=== PATIENT | male | born 1990 | race African-American/Black ===

== ENCOUNTER 2021-03-02 15:31 | Emergency (ER) | payer SELFPAY ==
--- OUTSIDE RECORDS SUMMARY | 2021-03-02 15:34 | XMS REPORT | Continuity of Care Document ---
:1990 Author Organization [facility] t Address [address] [place] [address] Care Team Providers Name Role Phone Pcp MD Primary Care Physician Unavailable Drew Sen MD Attending Clinician Khang Cavazos MD Attending Clinician Amy ADAMS Attending Clinician Unavailable Problems This patient has no known problems. Allergies, Adverse Reactions, Alerts Allergy Allergy Status Severity Reaction(s) Onset Inactive Treating Comm ents Source Name Type Date Date Clinician [facility] Propensi Active Hives [place] [facility] to 06-04 [facility] adverse 00:00: st reaction 00 s to drug [facility] Drug Active Hives 2012-[address] [facility] Social History Social Habit Start Date Stop Date Quantity Comments Source Tobacco use and 2020-07-13 2020-07-13 Never used [facility] ethodist exposure 00:00:00 00:00:00 Alcohol intake 2020-07-13 2020-07-13 Current drinker [place] 00:00:00 00:00:00 of alcohol (finding) Alcohol Comment 2019-06-04 2019-06-04 social [facility] ethodist 00:00:00 00:00:00 Cigarettes smoked 2019-04-11 2019-04-[address] [facility] - current (pack per 00:00:00 00:00:00 Medical Center day) - Reported Cigarette 2019-04-11 2019-04-[address] [facility] - pack-years 00:00:00 00:00:00 Medical Center Sex Ass[birth year] At [birth year] [facility] ethodist 00:00:00 00:00:00 Smoking Status Start Date Stop Date Source Current every day smoker 2020-07-13 00:00:00 [facility] Heavy tobacco smoker 2019-04-11 00:00:00 [facility] Medications Ordered Filled Start Stop Current Ordering Indication Dosage Frequency Signature Comments Components Source Medication Medication Date Date Medication? Clinician (SIG) Name Name albuterol Yes 2 puffs q Coreen raymundo (PROAIR 02-21 4 hrs for [facility] HFA) 90 00:00: two days, st mcg/actuati 00 then prn on inhaler albuterol 2020- Yes Moderate 1.25mg Q6H Take 3 mL [place] (ACCUNEB) 02-2117 asthma with (1.25 mg [facility] 1.25 mg/3 00:00: 23:59 exacerbatio total) by st mL 00 :00 n, nebulizati nebulizer unspecified on every 6 solution whether (six) persistent hours as needed for wheezing for up to 30 days. predniSONE No 60mg QD Take 3 [place] (DELTASONE) 02-21 06-21 tablets Meth xavier 20 mg 00:00: 23:59 ([address] tablet 00 :00 total) by mouth daily for 4 days. traMADoL 2019-09 No acute pain 50mg Q6H Take 1 [place] (ULTRAM) 50 09-12 tablet (50 M ethodi mg tablet 00:00: 23:59 mg total) st 00 :00 by mouth every 6 (six) hours as needed for moderate pain for up to 10 days .acute pain. clindamycin 2019-09- No 450mg [id number] Take 3 [place] (CLEOCIN) 09-1213 [id number] capsules [facility]i 150 MG 00:00: 23:59 3D ([address] capsule 00 :00 total) by mouth 3 (three) times a day for 7 days. albuterol 2012-09 Yes 1{ampul Take [address] (ACCUNEB) 0-30 e} ampule by [facility] - 1.25 mg/3 09:06: nebulizati Me dical mL 39 on every 6 Center nebulizer (six) solution hours as needed. Immunizations Ordered Immunization Filled Immunization Date Status Commen ts Source Name Name Tdap 2017-08-[address] [facility] Vital Signs Vital Name Observation Time Observation Value Comments Source Systolic blood 2021-02-21 15:12:00 120 mm[Hg] [place] pressure Diastolic blood 2021-02-21 15:12:00 79 mm[Hg] [place] pressure Heart rate 2021-02-21 15:12:00 88 /min [facility] Body temperature 2021-02-21 15:12:00 36.39 [place] Respiratory rate 2021-02-21 15:12:00 19 /min [place] Oxygen saturation in 2021-02-21 15:12:00 99 /min [facility] Arterial blood by Pulse oximetry Body height 2021-02-21 12:25:00 175.3 cm [facility] Body weight 2021-02-21 12:25:00 99.791 kg [facility] BMI 2021-02-21 12:25:00 32.49 kg/m2 [facility] Procedures Procedure Date / Time Performed Performing Clinician Sourc e XR CHEST 2 VW 2021-02-21 14:43:30 Tim Sen Plan of Care Planned Activity Planned Date Details Comments Source Future Scheduled 2021-04-07 INFLUENZA VACCINE [facility] Test 00:00:00 [code = INFLUENZA VACCINE] Future Scheduled 2020-09-[address] [facility] - Test 00:00:00 (12+) [code = [facility] DEPRESSION SCREENING (12+)] Future Scheduled 2020-05-08 INFLUENZA VACCINE (#1) [facility] 00:00:00 [code = INFLUENZA Medical Ce nter VACCINE (#1)] Future Scheduled 2017-09-22 DTAP/TDAP/TD [facility]ACCINES [facility] 00:[facility]00 (2 - Td) [[facility] DTAP/TDAP/TD VACCINES (2 - Td)] Future Scheduled [address] [facility] Test 00:00:00 (procedure) [code = [facility] [id number]] Future Scheduled 2007 HEPATITIS C SCREENING [facility] Test 00[facility]00:00 [code = HEPATITIS C [facility] SCREENING] Future Scheduled 2007 Hepatitis C screening [facility] Test 00:00:00 (procedure) [code = 352056912] Future Scheduled 2001 COVID-19 VACCINE (1) [facility] Test 00:00:00 [code = COVID-19 VACCINE (1)] Future Scheduled [address] [facility] - Test 00:00:00 0-64 YRS (1 of 1 - Medical C enter PPSV23) [code = PNEUMOCOCCAL VACCINE 0-64 YRS (1 of 1 - PPSV23)] Encounters Start End Encounter Admission Attending Care Care Encounter Source Date/Time Date/Time Type Type Clinicians Facility Department ID 2021-02-21 2021-02-21 Emergency [place], [place] [id number] [address] [place] 00:00:00 00:00:00 TIM [address] 2020-07-13 2020-07-13 Emergency [place] [address] [id number] [address] [place] 00:00:00 00:00:[address] [address] Results Test Description Test Time Test Comments Results Result Sourc e Comments XR Chest 2 Vw 2021-02-05 [facility] [address] 14:45:31 02/21/2021 2:48 PM CDT EXAMINATION: XR CHEST 2 VWCLINICAL HISTORY: 30 years Male sobCOMPARISON: None.IMPRESSION:The cardiomediastinal silhouette is not enlarged The lungs are clear The osseous structures are within normal limits... RAPID DRUG SCREEN, URINE 2019-04-11 18:42:00 Test Item Value Reference Range Interpretation Comme nts METHAMPHETAMINE SCREEN (BEAKER) (test code = 1435) Negative Neg ative BARBITURATE URINE (BEAKER) (test code = 725) Negative Negative BENZODIAZEPINE SCREEN URINE (BEAKER) (test code = 726) Negative Negative COCAINE (METAB.) SCREEN (BEAKER) (test code = 1164) Positive Ne gative A METHADONE SCREEN (BEAKER) (test code = 1436) Negative Negative OPIATE SCREEN URINE (BEAKER) (test code = 734) Negative Negativ e CANNABINOID SCREEN URINE (BEAKER) (test code = 727) Positive Ne gative A TRICYCLIC SCREEN (BEAKER) (test code = 1437) Negative Negative AMPHETAMINE SCREEN URINE (BEAKER) (test code = 399) Negative Ne gative PHENCYCLIDINE SCREEN URINE (BEAKER) (test code = 608) Negative Negative DRUG CUTOFF CONC.Methamphetamine 1000 ng/mLCocaine 300 ng/mLCannabinoid 50 ng/mLBenzodiazepine 300 ng/mLTricyclic 1000 ng/tIMdxdpfvgvbt805 ng/mLPhencyclidine 25 ng/mLAmphetamine 1000 ng/mLOpiate 300 ng/mLMethadone 300 ng/mLThis assay provides an unconfirmed qualitative test result for the clinical management of patients in emergency situations. Chain of custody not maintained. Some nyjg-vja-modeeej medications, as well as adulterants, may cause inaccurate results. Clinical correlation should be applied. A more comprehensive drug screen or confirmation of a detected drug may be performed uponrequest.CT, BRAIN, WITHOUT [id number] 18:09:00FINAL REPORT CT, BRAIN, WITHOUT CONTRAST CLINICAL INDICATION: Confusion/delirium, altered LOC, unexplained COMPARISON: None TECHNIQUE: Noncontrast axial CT imaging of the brainand skull. DOSE REDUCTION: Dose modulation, iterative reconstruction, and/or weight-based adjustment of the mA/kV was utilized to reduce the radiation dose to as low as reasonably achievable. FINDINGS:No intracranial hemorrhage, midline shift or mass effect. Midline structures are normally developed. No hydrocephalus. Orbits are within normal limits. No obstructive paranasal sinus disease. IMPRESSION: No acute intracranial findings If there is persistent clinical concern for intracranial pathology, MR examination is recommended for further characterization. Signed: Thu Young MDReport Verified Date/Time: 04/11/2019 18:09:57 Reading Location: [facility] Radiology Reading Room C METABOLIC [id number] 16:12:00 Test Item Value Reference Range Interpretation Comments SODIUM (BEAKER) 129 meq/L 135-148 L (test code = 381) POTASSIUM (BEAKER) 3.8 meq/L 3.6-5.5 (test code = 379) CHLORIDE (BEAKER) 93 meq/L 98-106 L (test code = 382) CO2 (BEAKER) (test 27 meq/L 24-32 code = 355) BLOOD UREA NITROGEN 16 mg/dL 10-26 (BEAKER) (test code = 354) CREATININE (BEAKER) 1.23 mg/dL 0.50-1.20 H (test code = 358) GLUCOSE RANDOM 94 mg/dL 70-110 (BEAKER) (test code = 652) CALCIUM (BEAKER) 8.9 mg/dL 8.5-10.5 (test code = 697) EGFR (BEAKER) (test 84 mL/min/1.73 ESTIMA LOU GFR IS code = 1092) sq m NOT ACCURATE CREATININE CLEARANCE IN PREDICTING GLOMERULAR FILTRATION RATE . ESTIMATED GFR I S NOT APPLICABLE FOR DIALYSIS PATIEN TS. CBC W/PLT COUNT & AUTO [id number] 16:12:00 Test Item Value Reference Range Interpretation Comments WHITE BLOOD CELL COUNT (BEAKER) 13.5 K/ L 4.0-10.0 H (test code = 775) RED BLOOD CELL COUNT (BEAKER) 4.93 M/ L 4.20-5.80 (test code = 761) HEMOGLOBIN (BEAKER) (test code = 14.9 GM/DL 13.0-16.8 410) HEMATOCRIT (BEAKER) (test code = 44.8 % 40.0-50.0 411) MEAN CORPUSCULAR VOLUME (BEAKER) 90.9 fL 82.0-98.0 (test code = 753) MEAN CORPUSCULAR HEMOGLOBIN 30.2 pg 27.0-33.0 (BEAKER) (test code = 751) MEAN CORPUSCULAR HEMOGLOBIN CONC 33.2 GM/DL 32.0-36.0 (BEAKER) (test code = 752) RED CELL DISTRIBUTION WIDTH 12.4 % 10.3-14.2 (BEAKER) (test code = 412) PLATELET COUNT (BEAKER) (test 288 K/CU MM 150-430 code = 756) MEAN PLATELET VOLUME (BEAKER) 7.4 fL 6.5-10.5 (test code = 754) NEUTROPHILS RELATIVE PERCENT 59 % (BEAKER) (test code = 429) LYMPHOCYTES RELATIVE PERCENT 27 % (BEAKER) (test code = 430) MONOCYTES RELATIVE PERCENT 9 % (BEAKER) (test code = 431) EOSINOPHILS RELATIVE PERCENT 4 % (BEAKER) (test code = 432) BASOPHILS RELATIVE PERCENT 1 % (BEAKER) (test code = 437) NEUTROPHILS ABSOLUTE COUNT 8.03 K/ L 1.80-8.00 H (BEAKER) (test code = 670) LYMPHOCYTES ABSOLUTE COUNT 3.68 K/ L 1.48-4.50 (BEAKER) (test code = 414) MONOCYTES ABSOLUTE COUNT (BEAKER) 1.19 K/ L 0.00-1.30 (test code = 415) EOSINOPHILS ABSOLUTE COUNT 0.47 K/ L 0.00-0.50 (BEAKER) (test code = 416) BASOPHILS ABSOLUTE COUNT (BEAKER) 0.15 K/ L 0.00-0.20 (test code = 417) RAD, FOOT, MIN 3 VIEWS, [id number] 11:17:00Reason for exam:->FOOT INJURYstepped on a nail 2 days agoReason for exam:->PUNCTURE WOUNDShould this be performed at the bedside?->NoFINAL REPORT TECHNIQUE: Frontal, lateral, and oblique radiographs of the right foot dated 08/25/2017 HISTORY: Foot injury, puncture wound COMPARISON: None. FINDINGS:No fracture or dislocation. Bones are normal in density. No joint space narrowing. No bone erosion or soft tissuenodule seen. No radiodense foreign body or subcutaneous emphysema. IMPRESSION:No fracture or dislocation. Signed: Marcelo Bakereport Verified Date/Time: 08/25/2017 11:17:48 Reading Location: [facility] Radiology Reading Room
--- NOTE | 2021-03-02 16:23 | EDPHYS ---
Physician Documentation [facility] Name: Jean Claude Joel Age: 30 yrs Sex: Male : 1990 Arrival Date: 03/02/2021 Time: 15:32 Bed 15 Private MD: ED Physician Naveen Burns HPI: 03/02 16:22 This 30 yrs old Black Male presents to ER via Wheelchair with complaints of Toothache. pm1 16:22 The patient presents with pain. The problem is located in the lower right first molar. pm1 Onset: The symptoms/episode began/occurred Ongoing for multiple months and worse the past few days. Has been seen for this dental pain recently and is on 3rd day of clindamycin. 16:22 Duration: The symptoms are continuous. pm1 16:22 Modifying factors: The symptoms are alleviated by nothing, the symptoms are aggravated pm1 by nothing, food. Associated signs and symptoms: Pertinent positives: headache, neck pain, Pertinent negatives: dysphagia, fever, inability to eat, redness in area, swelling. Severity of symptoms: in the emergency department the symptoms are unchanged. The patient has been recently seen by a physician: patient started on antibiotics three days ago for the same complaint. Patient without any pain medications because he is currently in drug rehabilitation for cocaine abuse. Historical: - Allergies: 15:38 PENICILLINS; ll1 - PMHx: 15:38 Asthma; ll1 - PSHx: 15:38 None; ll1 - Immunization history:: Flu vaccine is not up to date. - Social history:: Smoking status: Patient reports the use of cigarette tobacco products, smokes one-half pack cigarettes per day. ROS: 16:22 Constitutional: Negative for fever, chills, and weight loss, Eyes: Negative for injury, pm1 pain, redness, and discharge. 16:22 Cardiovascular: Negative for chest pain, palpitations, and edema, Respiratory: Negative for shortness of breath, cough, wheezing, and pleuritic chest pain, Abdomen/GI: Negative for abdominal pain, nausea, vomiting, diarrhea, and constipation, Back: Negative for injury and pain, MS/Extremity: Negative for injury and deformity, Skin: Negative for injury, rash, and discoloration. 16:22 ENT: Positive for dental pain, Negative for sore throat, difficulty swallowing, difficulty handling secretions, hoarseness. 16:22 Neck: Positive for pain, Negative for injury or acute deformity, pain with movement, swollen nodes, tenderness, bony tenderness. 16:22 Neuro: Positive for headache, Negative for numbness, tingling, weakness. Exam: 16:22 Constitutional: This is a well developed, well nourished patient who is awake, alert, pm1 and in no acute distress. Head/Face: Normocephalic, atraumatic. Eyes: Pupils equal round and reactive to light, extra-ocular motions intact. Lids and lashes normal. Conjunctiva and sclera are non-icteric and not injected. Cornea within normal limits. Periorbital areas with no swelling, redness, or edema. Neck: Trachea midline, no thyromegaly or masses palpated, and no cervical lymphadenopathy. Supple, full range of motion without nuchal rigidity, or vertebral point tenderness. No Meningismus. 16:22 Back: No spinal tenderness. No costovertebral tenderness. Full range of motion. Skin: Warm, dry with normal turgor. Normal color with no rashes, no lesions, and no evidence of cellulitis. MS/ Extremity: Pulses equal, no cyanosis. Neurovascular intact. Full, normal range of motion. 16:22 ENT: External ear(s): are unremarkable, Ear canal(s): are normal, TM's: are normal, Mouth: Lips: normal, Oral mucosa: normal, Gums: normal with healthy appearance, Dental exam: pain, that is mild, specifically in the lower right first molar (#30) with palpation to filling. Filling does not appear loose. 16:22 Cardiovascular: Rate: normal, Rhythm: regular, Pulses: no pulse deficits are appreciated, Edema: is not appreciated. 16:22 Respiratory: Exam negative for acute changes, respiratory distress, shortness of breath. 16:22 Neuro: Exam negative for acute changes, Orientation: is normal, Mentation: is normal, Motor: is normal, moves all fours. Vital Signs: 15:38 BP 154 / 109; Pulse 70; Resp 18; Temp 97.0; Pulse Ox 100% ; Weight 95.25 kg; Height 5 ll1 ft. 8 in. (172.72 cm); Pain 10/10; 16:40 BP 131 / 69; Pulse 70; Resp 16 S; Pulse Ox 100% on R/A; ca1 15:38 Body Mass Index 31.93 (95.25 kg, 172.72 cm) ll1 MDM: 15:50 Patient medically screened. [facility] 16:22 Data reviewed: vital signs. Data interpreted: Pulse oximetry: on room air is 100 %. pm1 Interpretation: normal. Counseling: I had a detailed discussion with the patient and/or guardian regarding: the historical points, exam findings, and any diagnostic results supporting the discharge/admit diagnosis, the need for outpatient follow up, for definitive care, a dentist, to return to the emergency department if symptoms worsen or persist or if there are any questions or concerns that arise at home. 16:35 ED course: Patient in drug rehad for cocaine abuse. No narcotics given in the ER or as pm1 prescription. Administered Medications: 16:30 Drug: TORadol (ketorolac) 60 mg Route: IM; Site: left gluteus; ca1 16:41 Follow up: Response: No adverse reaction; Pain is decreased ca1 Disposition: 21:18 Co-signature as Attending Physician, Naveen Burns MD I agree with the assessment and [facility] plan of care. Disposition: 03/02/21 16:23 Discharged to Home. Impression: Dental pain. - Condition is Stable. - Discharge Instructions: Dental Pain. - Prescriptions for Diclofenac Sodium 75 mg Oral Tablet, Delayed Release (E.C.) - take 1 tablet by ORAL route 2 times per day As needed; 30 tablet. - Medication Reconciliation Form, Thank You Letter, Antibiotic Education, Prescription Opioid Use form. - Follow up: Emergency Department; When: As needed; Reason: Worsening of condition. Follow up: Private Physician; When: 2 - 3 days; Reason: Recheck today's complaints, Continuance of care, Re-evaluation by your physician. - Problem is new. - Symptoms have improved. Signatures: Naveen Burns MD MD [facility] Brayan Cerrato, SALES REPRESENTATIVE [employer] SALES REPRESENTATIVE [employer] pm1 Ariadna Goyal RN RN ca1 Jai Gleason RN RN ll1 Corrections: (The following items were deleted from the chart) 16:42 16:23 03/02/2021 16:23 Discharged to Home. Impression: Dental pain. Condition is ca1 Stable. Forms are Medication Reconciliation Form, Thank You Letter, Antibiotic Education, Prescription Opioid Use. Follow up: Emergency Department; When: As needed; Reason: Worsening of condition. Follow up: Private Physician; When: 2 - 3 days; Reason: Recheck today's complaints, Continuance of care, Re-evaluation by your physician. Problem is new. Symptoms have improved. pm1
--- NOTE | 2021-03-02 16:23 | ER ---
Nurse's Notes [facility] Name: Jean Claude Jeol Age: 30 yrs Sex: Male : 1990 Arrival Date: 03/02/2021 Time: 15:32 Bed 15 Private MD: Diagnosis: Dental pain Presentation: 03/02 15:38 Chief complaint: Patient states: R sided lower jaw tooth pain, CHU, R sided neck pain ll1 severe for 30 min. Coronavirus screen: Client denies travel out of the [place] in the last 14 days. At this time, the client does not indicate any symptoms associated with coronavirus-19. Ebola Screen: Patient denies travel to an Ebola-affected area in the 21 days before illness onset. Initial Sepsis Screen: Does the patient meet any 2 criteria? No. Patient's initial sepsis screen is negative. Does the patient have a suspected source of infection? Yes: Other: tooth. Risk Assessment: Do you want to hurt yourself or someone else? Patient reports no desire to harm self or others. Onset of symptoms was March 02, 2021. 15:38 Method Of Arrival: Wheelchair ll1 15:38 Acuity: JAYJAY 3 ll1 Triage Assessment: 15:59 EENT: Reports. ca1 Historical: - Allergies: 15:38 PENICILLINS; ll1 - PMHx: 15:38 Asthma; ll1 - PSHx: 15:38 None; ll1 - Immunization history:: Flu vaccine is not up to date. - Social history:: Smoking status: Patient reports the use of cigarette tobacco products, smokes one-half pack cigarettes per day. Screenin:58 Abuse screen: Denies threats or abuse. Denies injuries from another. Nutritional ca1 screening: No deficits noted. Tuberculosis screening: No symptoms or risk factors identified. Fall Risk None identified. Assessment: 15:58 General: Appears in no apparent distress. uncomfortable, Behavior is cooperative, ca1 appropriate for age, crying. Pain: Complains of pain in right frontal area, right side of the back of head, right temporal area, right side of forehead, right occipital area, right ear, right yazdanism and right base of the skull Pain radiates to right arm and neck Pain currently is 10 out of 10 on a pain scale. Pain began 1 hour ago. Neuro: Level of Consciousness is awake, alert, obeys commands, Oriented to person, place, time, situation. EENT: Derm: Skin is intact, is healthy with good turgor, Skin is pink, warm \T\ dry. Musculoskeletal: Circulation, motion, and sensation intact. Capillary refill < 3 seconds. 16:40 Reassessment: Patient appears in no apparent distress at this time. Patient and/or ca1 family updated on plan of care and expected duration. Pain level reassessed. Patient is alert, oriented x 3, equal unlabored respirations, skin warm/dry/pink. Patient states feeling better. Vital Signs: 15:38 BP 154 / 109; Pulse 70; Resp 18; Temp 97.0; Pulse Ox 100% ; Weight 95.25 kg; Height 5 ll1 ft. 8 in. (172.72 cm); Pain 10/10; 16:40 BP 131 / 69; Pulse 70; Resp 16 S; Pulse Ox 100% on R/A; ca1 15:38 Body Mass Index 31.93 (95.25 kg, 172.72 cm) ll1 ED Course: 15:32 Patient arrived in ED. as 15:37 Arm band placed on Patient placed in an exam room, on a stretcher. ll1 15:39 Triage completed. ll1 15:48 Ariadna Goyal RN is Primary Nurse. ca1 15:49 Brayan Cerrato NP is PHCP. pm1 15:49 Naveen Burns MD is Attending Physician. pm1 15:58 Patient has correct armband on for positive identification. Bed in low position. Call ca1 light in reach. Side rails up X2. Pulse ox on. NIBP on. Door closed. Visitors limited. Lights dimmed. Warm blanket given. 16:41 No provider procedures requiring assistance completed. Patient did not have IV access ca1 during this emergency room visit. Administered Medications: 16:30 Drug: TORadol (ketorolac) 60 mg Route: IM; Site: left gluteus; ca1 16:41 Follow up: Response: No adverse reaction; Pain is decreased ca1 Outcome: 16:23 Discharge ordered by . pm1 16:41 Discharged to Rehab Facility ca1 16:41 Condition: stable 16:41 Discharge instructions given to patient, Instructed on discharge instructions, follow up and referral plans. medication usage, Demonstrated understanding of instructions, follow-up care, medications, Prescriptions given X 1. 16:42 Patient left the ED. ca1 Signatures: Cherri Contreras Patrick, SHAKE SPLITTER SHAKE SPLITTER pm1 Ariadna Goyal RN RN ca1 Jai Gleason RN RN ll1
[2021-03-02] MEDS ORDERED: KETOROLAC 30 MG/ML INJ ONE (16:44)
[2021-03-02 16:49] VITALS: TEMP 97; O2SAT 100
[2021-03-02 16:50] VITALS: BP 131/69
== END 2021-03-02 16:42 | disposition home or self-care (01) ==
LOC: ER 15:31
DX: K08.89 Other specified disorders of teeth and supporting structures (principal); F17.210 Nicotine dependence, cigarettes, uncomplicated; Z88.0 Allergy status to penicillin
CPT/HCPCS: 96372; 99283